=== PATIENT | male | born 2000 | race Caucasian/White ===

== ENCOUNTER 2022-10-17 03:36 | Emergency (ER) | payer OTHER ==
[~2022-10-17] VITALS: Ht 182.9 cm; Wt 64.9 kg
[2022-10-17 04:32] LABS: CLARITY,URINE CLEAR (CLEAR); COLOR,URINE YELLOW (YELLOW); LEUKOCYTE ESTERASE ,URINE NEGATIVE (NEGATIVE); NITRITE,URINE NEGATIVE (NEGATIVE); PROTEIN,URINE DIPSTICK NEGATIVE (NEGATIVE)
[2022-10-17 04:33] LABS: BACTERIA,URINE FEW /HPF; EPITHELIAL CELLS,URINE FEW /LPF; KETONES,URINE NEGATIVE (NEGATIVE); RBC,URINE 0-5 /HPF (0-5); URINE UROBILINOGEN 0.2 mg/dL (0.2 - 1); WBC,URINE (MAN) 0-5 /HPF (0-5)
[2022-10-17] MEDS ORDERED: DOXYCYCLINE HY100 MG PO (05:56)
[2022-10-17 06:17] VITALS: BP 121/60; PULSE 71; RESP 18; TEMP 97.3; O2SAT 98
== END 2022-10-17 06:17 | disposition home or self-care (01) ==
LOC: ER 03:57
DX: N50.811 Right testicular pain (principal); N45.2 Orchitis; R10.31 Right lower quadrant pain
CPT/HCPCS: 76870; 81001; 93976; 99283